=== PATIENT | female | born 2000 | race Native Hawaiian/Other Pacific Islander ===

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

== ENCOUNTER 2020-03-13 23:51 | Emergency (ER) | payer OTHER ==
[~2020-03-13] VITALS: Ht 160 cm; Wt 131.5 kg
[2020-03-14 01:20] VITALS: BP 128/71; TEMP 98.2
== END 2020-03-14 01:20 | disposition home or self-care (01) ==
LOC: ED 23:51
DX: S50.01XA Contusion of right elbow, initial encounter (principal); W07.XXXA Fall from chair, initial encounter; Y92.098 Other place in other non-institutional residence as the place of occurrence of the external cause
CPT/HCPCS: 99283

== ENCOUNTER 2021-12-18 09:30 | Emergency (ER) | payer OTHER ==
[~2021-12-18] VITALS: Ht 160 cm; Wt 108.9 kg
[2021-12-18 09:35] VITALS: TEMP 97.66
[2021-12-18 10:08] LABS: PLATELET COUNT 331 K/uL (152-353)
[2021-12-18 10:13] LABS: POTASSIUM 3.9 mmol/L (3.6-5.2)
[2021-12-18 12:13] VITALS: BP 126/80
== END 2021-12-18 12:14 | disposition home or self-care (01) ==
LOC: ED 09:30
PROVIDERS: Emergency Medicine
DX: N13.2 Hydronephrosis with renal and ureteral calculous obstruction (principal); N39.0 Urinary tract infection, site not specified
CPT/HCPCS: 36415; 80053; 81000; 81025; 83690; 85027; 87077; 87086; 87088; 87186; 96360; 96361; 96374; 96375; 99284; J2270; J2405; Q9963

== ENCOUNTER → 2022-01-23 | Outpatient (CLI) | payer BC | LOC: RAD 14:54 | PROVIDERS: ATTEND Internal Medicine | DX: M79.672 Pain in left foot (principal) ==

== ENCOUNTER 2022-11-21 09:50 | Outpatient (CLI) | payer BC | END 2022-11-21 19:10 | disposition home or self-care (01) | LOC: US 09:50 | PROVIDERS: ATTEND Otolaryngology | DX: E04.1 Nontoxic single thyroid nodule (principal) ==